=== PATIENT | female | born 1970 | race Caucasian/White ===

== ENCOUNTER 2017-01-10 18:54 | Emergency (ER) | payer SELFPAY ==
[2017-01-10 19:06] VITALS: BP 119/70
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
[2017-01-10] MEDS ORDERED: HYDROmorphone 0.5 MG/0.5 ML Syringe IVPUSH ONE ×2 (19:30→21:47)
[2017-01-10] MEDS ORDERED: Ondansetron 4 MG/2 ML SDV IVPUSH ONE (19:30)
[2017-01-10] MEDS ORDERED: Sodium Chloride 0.9% 1,000 ML IV SCH (19:30)
[2017-01-10] MEDS ORDERED: Levofloxacin/Dextrose 5%-Water 500 MG in Premix Bag 1 BAG IV ONE (20:33)
[2017-01-10] MEDS ORDERED: Phenazopyridine 95 MG Tab PO ONE (20:47)
[2017-01-10] MEDS ORDERED: Ketorolac 30 MG/ML SDV IVPUSH SCH (22:00)
[2017-01-11] MEDS ORDERED: Phenazopyridine 95 MG Tab PO ONE (09:00)
== END 2017-01-10 22:04 | disposition home or self-care (01) ==
LOC: SUPCPDRO 18:54 → JD.ED 18:54
DX: N30.01 Acute cystitis with hematuria (principal); F17.210 Nicotine dependence, cigarettes, uncomplicated; Z90.710 Acquired absence of both cervix and uterus; Z98.51 Tubal ligation status; Z87.442 Personal history of urinary calculi
CPT/HCPCS: 36415; 80053; 81001; 85025; 86140; 87086; 96361; 96365; 96375; 96376; 99284; A9270; J1170; J1885; J1956; J2405; J7040

== ENCOUNTER 2022-04-29 02:29 | Emergency (ER) | payer SELFPAY ==
[2022-04-29 03:01] VITALS: BP 188/108; PULSE 88
[2022-04-29] MEDS ORDERED: Ketorolac 15 MG/ML SDV IVPUSH ONE (03:13)
[2022-04-29] MEDS ORDERED: Ondansetron 4 MG/2 ML SDV IVPUSH ONE (03:13)
[2022-04-29] MEDS ORDERED: Lactated Ringers 1,000 ML IV ONE (03:13)
[2022-04-29 03:48] LABS: ESTIMATED GFR 78 mL/min (>60)
[2022-04-29] MEDS ORDERED: cefTRIAXone 1 GM in Sodium Chloride 0.9% 100 ML IV ONE (04:10)
[2022-04-29] MEDS ORDERED: Morphine 4 MG/ML Syringe IVPUSH ONE (04:15)
== END 2022-04-29 05:00 | disposition home or self-care (01) ==
LOC: JD.ED 02:29
DX: N13.2 Hydronephrosis with renal and ureteral calculous obstruction (principal); F17.210 Nicotine dependence, cigarettes, uncomplicated; Z91.018 Allergy to other foods; Z88.8 Allergy status to other drugs, medicaments and biological substances
CPT/HCPCS: 36415; 74176; 80053; 81001; 83690; 85025; 87086; 96361; 96365; 96375; 99284; J0696; J1885; J2270; J2405; J7120; 99283